=== PATIENT | female | born 1975 | race African-American/Black ===

== ENCOUNTER 2017-03-14 21:14 | Emergency (ER) | payer MEDICAID ==
[~2017-03-14] VITALS: Ht 165.1 cm; Wt 78.0 kg
[~2017-03-14 21:14] MED LIST: INSULIN; LISINOPRIL; OXYBUTYNIN
[2017-03-14 21:17] VITALS: BP 169/79
== END 2017-03-15 01:03 | disposition left against medical advice (07) ==
LOC: ER 21:14
DX: N93.9 Abnormal uterine and vaginal bleeding, unspecified (principal); Z53.21 Procedure and treatment not carried out due to patient leaving prior to being seen by health care provider

== ENCOUNTER 2017-03-15 08:43 | Emergency (ER) | payer MEDICAID ==
[~2017-03-15] VITALS: Ht 157.5 cm; Wt 105.0 kg
[2017-03-15] MEDS ORDERED: ACETAMINOPHEN 325MG TABLET PO STA (10:22)
[2017-03-15 10:41] LABS: CLARITY URINE CLOUDY (CLEAR); COLOR URINE YELLOW (YELLOW); GLUCOSE URINE 1+ (NEGATIVE); KETONES URINE NEGATIVE (NEGATIVE); LEUKOCYTE ESTERASE URINE TRACE (NEGATIVE); NITRITE URINE NEGATIVE (NEGATIVE); OCCULT BLOOD URINE 3+ (NEGATIVE); PH URINE 5.5 (4.5-8.0); PROTEIN URINE 1+ (NEGATIVE); UROBILINOGEN URINE 0.2 E.U./dL (0.2-1.0)
[2017-03-15 11:18] LABS: BASOPHILS % 1.9 % (0.0-2.0); EOSINOPHILS % 1.2 % (0.0-5.0); HEMATOCRIT. 39.8 % (36.0-48.0); HEMOGLOBIN. 13.3 g/dL (12.0-16.0); LYMPHOCYTES % 32.7 % (20.0-50.0); MEAN CORPUSCULAR HEMOGLOBIN 28.7 pg (28.0-32.0); MEAN PLATELET VOLUME 9.2 fl (7.4-10.4); MONOCYTES % 4.4 % (2.0-8.0); NEUTROPHILS % 59.8 % (40.0-76.0); PLATELET 342 x1000/uL (130-400); RED BLOOD CELL COUNT 4.63 mill/uL (4.2-5.4); RED CELL DISTRIBUTION WIDTH 13.9 % (11.6-14.6)
[2017-03-15 11:19] LABS: *AMPHETAMINES SCREEN URINE NEGATIVE (NEGATIVE); *BARBITURATES SCREEN URINE NEGATIVE (NEGATIVE); *BENZODIAZEPINES SCREEN URINE NEGATIVE (NEGATIVE); *COCAINE SCREEN URINE NEGATIVE (NEGATIVE); CANNABINOID URINE SCREEN NEGATIVE (NEGATIVE); METHADONE URINE SCREEN NEGATIVE (NEGATIVE); OPIATES URINE SCREEN NEGATIVE (NEGATIVE); PHENCYCLIDINE URINE SCREEN NEGATIVE (NEGATIVE)
[2017-03-15 11:25] LABS: CHLORIDE 101 mEq/L (98-107)
[2017-03-15 11:35] LABS: B-HCG QUANTITATIVE 17 mIU/mL (<3); CARBON DIOXIDE 29 mEq/L (21-32)
[2017-03-15 13:08] VITALS: BP 127/71
[2017-03-17 06:18] LABS: CHLAMYDIA TRACHOMATIS NAA Negative (Negative); NEISSERIA GONORRHOEAE NAA Negative (Negative)
== END 2017-03-15 13:09 | disposition home or self-care (01) ==
LOC: ER 08:43
DX: O02.1 Missed abortion (principal); O23.41 Unspecified infection of urinary tract in pregnancy, first trimester; N39.0 Urinary tract infection, site not specified; N76.0 Acute vaginitis; Z3A.08 8 weeks gestation of pregnancy
CPT/HCPCS: 36415; 76830; 76856; 80048; 80305; 81001; 82962; 84702; 85025; 86850; 86900; 86901; 87210; 87491; 87591; 99285; Z7610